=== PATIENT | male | born 1995 | race Caucasian/White ===

== ENCOUNTER 2018-10-24 16:20 | Emergency (ER) | payer BC ==
[2018-10-24] MEDS ORDERED: Tetan/Diph/Pertus SYR(Tdap)* 0.5 ML SYR(BOOSTRIX) use SYR IM ONE (17:49)
[2018-10-24] MEDS ORDERED: Lidocaine 2% EPI 1:200000 MPF*10-20 ML VIAL ONE (20:21)
[2018-10-24] MEDS ORDERED: Cephalexin CAP* 500 MG PO ONE (20:50)
--- NOTE | 2018-10-24 20:54 | ED ---
Laceration/Wound HPI - HPI Summary HPI Summary: Mechanical fall on the ice with pain and laceration to left knee. Tetanus status unknown. Denies any other symptoms, injury or pain. - History of Current Complaint Stated Complaint: LAC LEFT KNEE Time Seen by Provider: 10/24/18 17:42 Hx Obtained From: Patient Onset/Duration: Sudden Onset Aggravating: Movement Timing: Constant Onset Severity: Moderate Current Severity: Moderate Pain Intensity: 6 Pain Scale Used: 0-10 Numeric Associated Signs & Symptoms: Pain - Allergy/Home Medications Allergies/Adverse Reactions: Allergies Allergy/AdvReac Type Severity Reaction Status Date / Time No Known Allergies Allergy Verified 10/24/18 16:29 PMH/Surg Hx/FS Hx/Imm Hx Endocrine/Hematology History: Denies: Hx Anticoagulant Therapy Cardiovascular History: Denies: Hx Cardiac Arrest History: Denies: Hx Dialysis Sensory History: Denies: Hx Eye Prosthesis Neurological History: Denies: Hx Developmental Delay Psychiatric History: Denies: Hx Autism Infectious Disease History: No Infectious Disease History: Denies: Traveled Outside the [place] in Last 30 Days - Social History Alcohol Use: Occasionally Substance Use Type: Reports: Marijuana Smoking Status (MU): Former Smoker Review of Systems Constitutional: Negative Eyes: Negative ENT: Negative Cardiovascular: Negative Respiratory: Negative Gastrointestinal: Negative Genitourinary: Negative Musculoskeletal: Other Skin: Negative Neurological: Negative Psychological: Normal All Other Systems Reviewed And Are Negative: Yes Physical Exam - Summary Physical Exam Summary: Mild swelling to anterior left knee. No joint effusion. PMS intact distally. No erythema, ecchymosis, deformity, extra warmth noted to knee joint. Patient able to flex and extend left knee. Laceration on anterior left knee. Bleeding controlled. Triage Information Reviewed: Yes Vital Signs On Initial Exam: Initial Vitals Temp Pulse Resp BP Pulse Ox 98.0 F 80 19 147/91 94 10/24/18 16:22 10/24/18 16:22 10/24/18 16:22 10/24/18 16:22 10/24/18 16:22 Vital Signs Reviewed: Yes Appearance: Positive: Well-Appearing Skin: Positive: Warm Head/Face: Positive: Normal Head/Face Inspection Eyes: Positive: Normal Neck: Positive: Supple Respiratory/Lung Sounds: Positive: Clear to Auscultation Cardiovascular: Positive: Normal Abdomen Description: Positive: Nontender Musculoskeletal: Positive: Normal Neurological: Positive: Normal Psychiatric: Positive: Normal AVPU Assessment: Alert - Magaly Coma Scale Best Eye Response: 4 - Spontaneous Best Motor Response: 6 - Obeys Commands Best Verbal Response: 5 - Oriented Coma Scale Total: 15 Procedures - Laceration/Wound Repair 1 Location: lower extremity Description: Linear Anesthesia: Local, 2.0%, Lido Length, Depth and Shape: 9cm x 1cm Betadine Prep?: Yes Irrigated w/ Saline (ccs): 500 Laceration/Wound Explored: clean Debridement: minimal Number of Sutures: 12 - 4.o ethilon Layer Closure?: No Sterile Dressing Applied?: No Diagnostics - Vital Signs Vital Signs Temp Pulse Resp BP Pulse Ox 10/24/18 16:22 98.0 F 80 19 147/91 94 - Laboratory Lab Statement: Any lab studies that have been ordered have been reviewed, and results considered in the medical decision making process. Laceration Repair Course/Dx - Course Course Of Treatment: Mechanical fall on the ice with pain and laceration to left knee. Tetanus status unknown. Denies any other symptoms, injury or pain. Physical exam:Mild swelling to anterior left knee. No joint effusion. PMS intact distally. No erythema, ecchymosis, deformity, extra warmth noted to knee joint. Patient able to flex and extend left knee. Laceration on anterior left knee. Bleeding controlled. X-ray left knee unremarkable. Laceration sutured. Rx for Keflex - Clinical Impression Provider Diagnoses: Laceration, Fall Discharge - Sign-Out/Discharge Documenting (check all that apply): Patient Departure - Discharge Plan Condition: Stable Disposition: HOME Prescriptions: Cephalexin CAP* [Keflex CAP*] 500 mg PO TID 5 Days #15 cap Patient Education Materials: Care For Your Stitches (ED), Laceration (ED) Referrals: Arnold Kelly MD [Primary Care Provider] - Additional Instructions: Sutures out in 10 days. May wash with warm running water and soap. Do not submerge underwater swimming. When not washing, keep dry and clean and protected for the first few days. Return to the ED for any new or worsening symptoms - Billing Disposition and Condition Condition: STABLE Disposition: Home
[2018-10-24] MEDS ORDERED: Ibuprofen TAB* 600 MG PO ONE (20:55)
[2018-10-24 21:17] VITALS: BP 133/74
== END 2018-10-24 21:16 | disposition home or self-care (01) ==
LOC: ED 16:20
DX: S81.012A Laceration without foreign body, left knee, initial encounter (principal); W00.0XXA Fall on same level due to ice and snow, initial encounter; Y92.9 Unspecified place or not applicable; Z23 Encounter for immunization; Z87.891 Personal history of nicotine dependence
CPT/HCPCS: 12004; 90471; 90715; 99282; A9270-GY